=== PATIENT | female | born 1980 | race American Indian/Alaskan Native ===

== ENCOUNTER 2021-05-25 00:44 | Emergency (ER) | payer SELFPAY ==
[2021-05-25] MEDS ORDERED: ASPIRIN 325 MG TAB PO ONE (02:10)
--- NOTE | 2021-05-25 02:36 | XRay Report ---
CHEST 2 VIEWS INDICATION: Chest Pain. COMPARISON: None FINDINGS: SUPPORT DEVICES: None. HEART: Within normal limits. LUNGS/PLEURA: No acute air space or interstitial disease. No pneumothorax. ADDITIONAL FINDINGS: None. IMPRESSION: 1. No acute findings. Signer Name: Bairon Cobb MD Signed: 05/25/2021 2:32 AM Workstation Name: [id number]
[2021-05-25 03:00] LABS: Basophils % (Auto) 0.6 % (0.0-1.8); Eosinophils # (Auto) 0.2 K/mm3 (0.0-0.4); Eosinophils % (Auto) 2.9 % (0.0-4.3); Hematocrit 36.6 % (30.3-42.9); Hemoglobin 12.4 gm/dl (10.1-14.3); Lymphocytes # (Auto) 3.1 K/mm3 (1.2-5.4); Lymphocytes % (Auto) 39.9 % (13.4-35.0); Mean Corpuscular HGB Conc 34 % (30-34); Mean Corpuscular Volume 83 fl (79-97); Monocytes # (Auto) 0.8 K/mm3 (0.0-0.8); Platelet Count 263 K/mm3 (140-440); Red Cell Distribution Width 13.7 % (13.2-15.2)
[2021-05-25 03:29] LABS: Alanine Aminotransferase 13 units/L (7-56); Blood Urea Nitrogen 15 mg/dL (7-17); Calcium 8.9 mg/dL (8.4-10.2); Hemolysis Index 1
[2021-05-25 03:31] LABS: BUN/Creatinine Ratio 21
--- NOTE | 2021-05-25 07:45 | Emergency Department Report ---
ED Chest Pain HPI - General Chief Complaint: Chest Pain Stated Complaint: CHEST IS HURTING PUI?: No Time Seen by Provider: 05/25/21 07:24 Source: patient Mode of arrival: Ambulatory Limitations: No Limitations - History of Present Illness Initial Comments: Patient is a 41-year-old that comes to the emergency room today complaining of chest pain. Patient describes the pain is heavy at and it radiates to her back. She denies any radiating down her arm. She denies any nausea or diaphoresis. Patient states that the pain is worse with movement. I can replicate the pain with movement of her upper extremities. Patient also states that at times she has a sharp pain when she takes a deep breath. She denies any fever or chills. She denies any cough. She denies any history of cardiac disease. She is otherwise healthy. MD Complaint: chest pain -: Gradual, days(s) Onset: during rest, during exertion Pain Location: substernal Pain Radiation: none Severity: mild Severity scale (0 -10): 8 Quality: aching Consistency: intermittent Worsens With: movement Other Symptoms: denies: cough, fever, syncope, rash, acid taste in mouth, leg swelling, palpitations, burping - Related Data Allergies Allergy/AdvReac Type Severity Reaction Status Date / Time No Known Allergies Allergy Unverified 05/25/21 02:10 Heart Score - HEART Score History: Slightly suspicious EKG: Normal Age: < 45 Risk factors: 1-2 risk factors Troponin: < normal limit HEART Score: 1 - EKG Read Time Time EKG Completed: 00:58 EKG Read Time: 01:03 ED Review of Systems ROS: Stated complaint: CHEST IS HURTING Other details as noted in HPI Comment: All other systems reviewed and negative Constitutional: denies: chills, fever Eyes: denies: eye pain, eye discharge, vision change ENT: denies: ear pain, throat pain Respiratory: denies: cough, shortness of breath, wheezing Cardiovascular: denies: chest pain, palpitations Endocrine: no symptoms reported Gastrointestinal: denies: abdominal pain, nausea, diarrhea Genitourinary: denies: urgency, dysuria, discharge Musculoskeletal: denies: back pain, joint swelling, arthralgia Skin: denies: rash, lesions Neurological: denies: headache, weakness, paresthesias Psychiatric: denies: anxiety, depression Hematological/Lymphatic: denies: easy bleeding, easy bruising ED Past Medical Hx - Past Medical History Previous Medical History?: Yes Hx Hypertension: Yes (Preeclampsia) Additional medical history: OBESE - Surgical History Past Surgical History?: Yes Additional Surgical History: CSection - Family History Family history: other (MOM NOR DAD HAVE CAD) - Social History Smoking Status: Current Every Day Smoker Substance Use Type: Alcohol ED Physical Exam - General Limitations: No Limitations General appearance: alert, in no apparent distress - Head Head exam: Present: atraumatic, normocephalic - Eye Eye exam: Present: normal appearance - ENT ENT exam: Present: mucous membranes moist - Neck Neck exam: Present: normal inspection - Respiratory Respiratory exam: Present: normal lung sounds bilaterally. Absent: respiratory distress - Cardiovascular Cardiovascular Exam: Present: regular rate, normal rhythm. Absent: systolic murmur, diastolic murmur, rubs, gallop - GI/Abdominal GI/Abdominal exam: Present: soft, normal bowel sounds - Extremities Exam Extremities exam: Present: normal inspection - Back Exam Back exam: Present: normal inspection - Neurological Exam Neurological exam: Present: alert, oriented X3 - Psychiatric Psychiatric exam: Present: normal affect, normal mood - Skin Skin exam: Present: warm, dry, intact, normal color. Absent: rash ED Course Vital Signs 05/25/21 05/25/21 02:11 08:20 Temperature 98.2 F 97.9 F Pulse Rate 73 68 Respiratory 18 18 Rate Blood Pressure 126/78 124/69 [Right] O2 Sat by Pulse 98 98 Oximetry MINDI score - Mindi Score 3 or more CAD Risk Factors: (0) No 2 or more Angina events in past 24 hrs: (0) No Known CAD with more than 50% Stenosis: (0) No Elevated Cardiac Markers: (0) No ST Deviation Greater than 0.5mm: (0) No ED Medical Decision Making - Lab Data Result diagrams: 05/25/21 02:28 05/25/21 02:28 - EKG Data -: EKG Interpreted by Me EKG shows normal: sinus rhythm Rate: normal - EKG Data When compared to previous EKG there are: no significant change Interpretation: no acute changes - Radiology Data Radiology results: report reviewed, image reviewed No acute process - Medical Decision Making Labs 05/25/21 05/25/21 05/25/21 02:28 02:28 05:08 WBC 7.9 RBC 4.40 Hgb 12.4 Hct 36.6 MCV 83 MCH 28 MCHC 34 RDW 13.7 Plt Count 263 Lymph % (Auto) 39.9 H [place] % (Auto) 10.0 H Eos % (Auto) 2.9 Baso % (Auto) 0.6 Lymph # (Auto) 3.1 [place] # (Auto) 0.8 Eos # (Auto) 0.2 Baso # (Auto) 0.0 Seg Neutrophils % 46.6 Seg Neutrophils # 3.7 Sodium 140 Potassium 4.0 Chloride 105.7 Carbon Dioxide 24 Anion Gap 14 BUN 15 Creatinine 0.7 Estimated GFR > 60 BUN/Creatinine Ratio 21 Glucose 86 Calcium 8.9 Total Bilirubin 0.30 AST 17 ALT 13 Alkaline Phosphatase 81 Troponin T < 0.010 < 0.010 Total Protein 7.2 Albumin 4.0 Albumin/Globulin Ratio 1.3 Vital Signs 05/25/21 05/25/21 02:11 08:20 Temperature 98.2 F 97.9 F Pulse Rate 73 68 Respiratory 18 18 Rate Blood Pressure 126/78 124/69 [Right] O2 Sat by Pulse 98 98 Oximetry Labs noted. Troponin x2 -. EKG normal. Chest x-ray with no acute process Vital signs of remained normal while in the ER. Patient is ambulatory, [id number], nontoxic, taking p.o., talking on a cell phone while in the emergency room. As noted I am able to replicate the pain with movement of her upper extremities. I explained to the patient that this is most likely a musculoskeletal pain. However, she was so concerned I have given her referral to PCP for follow-up and further evaluation. Note that the patient has no hypotension, hypoxia or tachycardia. She has no fever or chills. Patient being discharged home with discharge plan of care. She verbalizes understanding of the plan of care. - Differential Diagnosis Rule out pneumonia, ACS, chest wall pain, pleuritic pain Critical care attestation.: If time is entered above; I have spent that time in minutes in the direct care of this critically ill patient, excluding procedure time. ED Disposition Clinical Impression: Chest wall pain Disposition: DC-01 TO HOME OR SELFCARE Is pt being admited?: No Does the pt Need Aspirin: No Condition: Stable Instructions: Nonspecific Chest Pain, Adult Additional Instructions: LOW FAT DIET DRINK A LOT OF WATER ACTIVITY TOLERATED MOTRIN OR TYLENOL, WITH FOOD, FOR PAIN FOLLOW UP WITH PCP REFERRAL BELOW Referrals: CASSIA GARZA MD [Staff Physician] - 3-5 Days Time of Disposition: 07:44
[2021-05-25 08:20] VITALS: BP 124/69
--- NOTE | 2021-05-27 09:10 | Electrocardiograph Report ---
[facility] Test Date: 2021-05-25 Test Time: 00:58:21 Pat Name: LESLY MCNEILL Department: Room: Gender: F [employer] Supervisor: YASH : 1980 Requested By: ED DOC Order Number: [id number] Reading MD: Alex Chiu Measurements Intervals [place] Rate: 70 P: 42 MS: 173 QRS: 37 QRSD: 81 T: 32 QT: 422 QTc: 455 Interpretive Statements Sinus rhythm No previous ECG available for comparison Electronically Signed On 05-27-2021 9:09:49 EDT by Alex Chiu
== END 2021-05-25 08:20 | disposition home or self-care (01) ==
LOC: ED 00:44
DX: R07.89 Other chest pain (principal); I10 Essential (primary) hypertension; F17.200 Nicotine dependence, unspecified, uncomplicated; Z98.890 Other specified postprocedural states
CPT/HCPCS: 36415; 71046; 80053; 84484; 85025; 93005